=== PATIENT | male | born 1980 | race Caucasian/White ===

== ENCOUNTER 2021-07-10 20:45 | Emergency (ER) | payer BC ==
[~2021-07-10] VITALS: Ht 175.3 cm; Wt 102.3 kg
[2021-07-10 23:03] VITALS: BP 127/88; PULSE 89; TEMP 98.7
== END 2021-07-10 23:03 | disposition home or self-care (01) ==
LOC: COL.ER 20:45
DX: S82.201A Unspecified fracture of shaft of right tibia, initial encounter for closed fracture (principal); X50.1XXA Overexertion from prolonged static or awkward postures, initial encounter; Y93.66 Activity, soccer